=== PATIENT | male | born 1935 | race Caucasian/White ===

== ENCOUNTER → 2017-03-10 | Outpatient (CLI) | payer MEDICARE, BC ==
[~2017-03-10] MED LIST: ALPRAZOLAM PO; CARAFATE PO; GLUCOPHAGE XR500 MG PO; HCTZ PO; LISINOPRIL PO; LOPRESSOR PO; MEVACOR PO; NORVASC PO
--- NOTE | ~2017-03-10 | CT116 ---
[facility] A Service of [facility] RADIOLOGY TEXT RESULTS PATIENT: ALAN VICTORIA LOCATION: [facility] : 37 UNIT #: [id number] AGE: [address]: Cynthia Couch MD SEX: M ORDER DR: [id number] [place], [place] [address] [id number] O MR#: [id number] Acc #: [id number] NAME: ALAN VICTORIA : 1935 SEX: M STUDY DATE/TIME: 03/10/2017 15:26 UNIT: [facility] ROOM: STUDY DESCRIPTION: CT Soft Tissue Neck Wo Cont Attending Physician: Cynthia Couch M.D. Referring Physician: Cynthia Couch M.D. Ordering Physician: Cynthia Couch M.D. Primary Care Physician: Cynthia Couch M.D. MEDICAL IMAGING REPORT This report is preliminary unless electronic signature is present EXAM Soft tissue neck CT without contrast 03/10/2017 TECHNIQUE Axial unenhanced soft tissue neck CT with multiplanar reformats. This CT exam was performed with one or more of the following radiation dose reduction techniques: automatic exposure control, adjustment of mA and/or kV according to patient size, and iterative reconstruction. HISTORY Lymphadenopathy identified approximately 10 days previously. FINDINGS The patient declined intravenous contrast. This limits the examination for identification of soft tissue masses and adenopathy. No definite adenopathy or other suspicious mass or inflammatory changes seen. Diminished lung apices reveal some pleural plaques but these appear unchanged since the prior CT of the chest from 2011. IMPRESSION Limited by the lack of IV contrast but allowing for that, no mass, adenopathy, inflammatory change or other acute abnormality. 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 Plaque is seen in the cervical carotid bifurcations. Dictated by... Danny Byrne M.D. THIS IS AN ELECTRONICALLY VERIFIED REPORT [facility] A Service [facility] RADIOLOGY TEXT RESULTS PATIENT: ALAN VICTORIA LOCATION: [facility] : 37 UNIT #: [id number] AGE: [address]: Cynthia Couch MD SEX: M ORDER DR: Danny Byrne M.D. at 03/13/2017 2:20 PM TEV/pcl TD: 03/10/2017 21:42 JOB #: [id number] MEDICAL IMAGING REPORT Page 1 of 1 COPY
== END | disposition home or self-care (01) ==
LOC: CCAT 14:15
DX: R59.1 Generalized enlarged lymph nodes (principal); M47.899 Other spondylosis, site unspecified; I65.23 Occlusion and stenosis of bilateral carotid arteries
CPT/HCPCS: 70490